=== PATIENT | male | born 1990 | race Caucasian/White ===

== ENCOUNTER 2021-06-16 10:22 | Emergency (ER) | payer SELFPAY ==
[~2021-06-16] VITALS: Ht 175.3 cm; Wt 80.0 kg
[2021-06-16] MEDS ORDERED: IBUPROFEN 600MG TABLET PO STA (10:32)
[2021-06-16] MEDS ORDERED: ACETAMINOPHEN 325MG TABLET PO STA (10:32)
[2021-06-16 11:18] LABS: BASOPHILS % 0.2 % (0.0-2.0); EOSINOPHILS % 0.1 % (0.0-5.0); HEMATOCRIT. 47.3 % (42.0-52.0); HEMOGLOBIN. 16.1 g/dL (14.0-18.0); LYMPHOCYTES % 11.7 % (20.0-50.0); MEAN CORPUSCULAR HEMOGLOBIN 30.3 pg (28.0-32.0); MEAN CORPUSCULAR VOLUME 88.7 fL (80.0-94.0); MEAN PLATELET VOLUME 9.1 fl (7.4-10.4); MONOCYTES % 4.7 % (2.0-8.0); NEUTROPHILS % 83.3 % (40.0-76.0); PLATELET 261 x1000/uL (130-400); RED BLOOD CELL COUNT 5.33 mill/uL (4.7-6.1); RED CELL DISTRIBUTION WIDTH 14.2 % (11.6-14.6)
[2021-06-16 11:23] LABS: CHLORIDE 104 mEq/L (98-107)
[2021-06-16] MEDS ORDERED: IBUP-2029 MT (11:55)
[2021-06-16 12:24] VITALS: BP 123/86
[2021-06-16] MEDS ORDERED: ACETAMINOPHEN 325MG TABLET PO NR (12:30)
[2021-06-16] MEDS ORDERED: IBUPROFEN 600MG TABLET PO NR (12:30)
== END 2021-06-16 12:26 | disposition home or self-care (01) ==
LOC: ER 10:38
DX: R51.9 Headache, unspecified (principal); R53.1 Weakness; R20.0 Anesthesia of skin; R03.0 Elevated blood-pressure reading, without diagnosis of hypertension
CPT/HCPCS: 36415; 80053; 85025; 99284